=== PATIENT | female | born 1970 | race Caucasian/White ===

== ENCOUNTER 2016-06-06 07:43 | Emergency (ER) | payer OTHER ==
--- NOTE | ~2016-06-06 | EKG ---
PATIENT: FELIX GUPTA UNIT #: [id number] Ventricular Rate: 80 BPM Atrial Rate: 80 BPM P-R Interval: 134 ms QRS Duration: 74 ms Q-T Interval: 396 ms QTC Calculation(Bezet): 456 ms P [place]: 17 degrees Calculated R [place]: 25 degrees Calculated T [place]: 19 degrees Diagnosis Line: Normal sinus rhythm Diagnosis Line: T wave abnormality, consider anterior ischemia Diagnosis Line: Abnormal ECG Diagnosis Line: When compared with ECG of 25-MAY-2015 17:16, Diagnosis Line: Inverted T waves have replaced nonspecific T wave Diagnosis Line: abnormality in Anterior leads Diagnosis Line: Confirmed by ALVA BARAKAT MD ([id number]) on 06/10/2016 Diagnosis Line: 9:39:11 AM INTERPRETING MD: YUVAL BLANCO
--- NOTE | ~2016-06-06 | EKG ---
PATIENT: FELIX GUPTA UNIT #: [id number] Ventricular Rate: 71 BPM Atrial Rate: 71 BPM P-R Interval: 134 ms QRS Duration: 76 ms Q-T Interval: 434 ms QTC Calculation(Bezet): 471 ms P [place]: 11 degrees Calculated R [place]: 23 degrees Calculated T [place]: 18 degrees Diagnosis Line: Normal sinus rhythm Diagnosis Line: Nonspecific T wave abnormality Diagnosis Line: Prolonged QT Diagnosis Line: Abnormal ECG Diagnosis Line: When compared with ECG of 06-JUN-2016 07:04, Diagnosis Line: (unconfirmed) Diagnosis Line: No significant change was found Diagnosis Line: Confirmed by ALVA BARAKAT MD ([id number]) on 06/10/2016 Diagnosis Line: 9:39:30 AM INTERPRETING MD: YUVAL BLANCO
[2016-06-06 07:35] LABS: ACETAMINOPHEN 23 ug/mL; ALBUMIN SERUM 4.3 g/dL (3.5-5.0); ALKALINE PHOSPHATASE 64 U/L (32-92); ALT (SGPT) 27 U/L (10-40); AST (SGOT) 26 U/L (10-42); BILIRUBIN,TOTAL 0.6 mg/dL (0.2-2.0); BLOOD UREA NITROGEN 13 mg/dL (9-23); BUN/CREATININE RATIO 16.25; CALCIUM SERUM 9.2 mg/dL (8.4-10.2); CARBON DIOXIDE 23 mmol/L (22-31); CHLORIDE 102 mmol/L (100-111); CREATININE SERUM 0.8 mg/dL (0.6-1.4); GLOM FILT RATE Estimated ABOVE60 mL/min (>60); GLUCOSE FASTING 98 mg/dL (70-110); POTASSIUM 3.6 mmol/L (3.5-5.1); PROTEIN TOTAL SERUM 8.2 g/dL (6.0-8.3); SALICYLATE <4.0 mg/dL; SODIUM 136 mmol/L (135-145)
[2016-06-06 07:41] LABS: ALCOHOL BLOOD <5 mg/dL (0); BILIRUBIN, DIRECT <0.1 mg/dL (0.0-0.2); BILIRUBIN,INDIRECT 0.5 mg/dL (0.0-0.9)
[~2016-06-06 07:43] MED LIST: CLARITIN10 M2 PO; KDUR PO; PRILOSEC PO; PROZAC10 M1; PROZAC40 M1 PO; REQUIP0.25 MG PO; VOLTAREN PO; ZESTRIL10 M2
[2016-06-06 08:04] LABS: AMPHETAMINE NEG (NEG); BARBITURATES NEG (NEG); BENZODIAZEPINES NEG (NEG); COCAINE NEG (NEG); MARIJUANA NEG (NEG); OPIATES NEG (NEG); TRICYCLIC ANTIDEPRESSANTS NEG (NEG); U METHADONE NEG (NEG)
[2016-06-06 09:16] LABS: BASOPHIL% 0.3 % (0-2.5); EOSINOPHIL# 0.2 X10e3 (0-0.7); EOSINOPHIL% 2.2 % (0.0-7.0); HEMATOCRIT 41.4 % (35.0-45.0); HEMOGLOBIN 13.1 gm/dL (12.0-16.0); LYMPHOCYTE# 2.8 X10e3 (1.0-3.5); LYMPHOCYTE% 30.9 % (17.0-45.0); MEAN CELL VOLUME 78.6 FL (83-96); MEAN CORPUSCULAR HGB CONC 31.7 g/dL (30-36); MEAN PLATELET VOLUME 8.5 FL (6.5-11.5); MONOCYTE# 0.6 X10e3 (0-1.0); NEUTROPHIL# 5.5 X10e3 (1.5-7.1); NEUTROPHIL% 59.6 % (40-75); PLATELET COUNT 419 X10e3 (140-420); RED BLOOD COUNT 5.27 X10e (3.90-5.30); RED CELL DISTRIBUTION WIDTH 15.7 % (11.0-15.5); WHITE BLOOD COUNT 9.2 X10e3 (4.0-10.5)
[2016-06-06 09:19] LABS: DIFF IND NO
[2016-06-07 18:48] LABS: POC - CKMB <1.0 ng/mL (0.0-7.9); POC - MYOGLOBIN 36.9 ng/mL (0.0-169.0); POC - TROPONIN <0.05 ng/mL (<=0.05)
== END 2016-06-06 15:53 ==
LOC: SED 07:43
PROVIDERS: Emergency Medicine
DX: T46.4X2A Poisoning by angiotensin-converting-enzyme inhibitors, intentional self-harm, initial encounter (principal); T43.222A Poisoning by selective serotonin reuptake inhibitors, intentional self-harm, initial encounter; T39.1X2A Poisoning by 4-Aminophenol derivatives, intentional self-harm, initial encounter; F32.9 Major depressive disorder, single episode, unspecified; F17.200 Nicotine dependence, unspecified, uncomplicated
CPT/HCPCS: 36415; 80048; 80076; 80307; 82553; 83874; 84484; 85025; 93005; 96361; 96374; 99284; G0480; J2405

== ENCOUNTER 2016-06-06 17:58 | Inpatient (IN) | payer OTHER ==
--- NOTE | ~2016-06-06 | PA ---
Unit #: [id number] #: [id number] Patient: FELIX SHERIDAN [id number] [facility] [address] [place] [address] [id number] MR#: [id number] NAME: FELIX SHERIDAN ROOM: P259 Age: 46 Sex: F Admission Date: 06/06/2016 : 1970 Date of Assessment: 06/07/2016 Attending Physician: Jorge Rodriguez M.D. Admitting Physician: Jorge Rodriguez M.D. Primary Care Physician: Primary Care Physician No PSYCHIATRIC ASSESSMENT INFORMANTS The patient's reliability, fair; chart reliability, good. CHIEF COMPLAINT "I took pills, made a bad decision." HISTORY OF PRESENT ILLNESS Ms. Tanmay Sheridan is a 46-year-old white female, seen on [facility]. The patient was admitted after taking an overdose. The patient reported history of PTSD. The patient currently denied any suicidal or homicidal ideation, but reported history of depression and taking medication. The patient was pleasant and cooperative during interview. Able to answer questions appropriately. The patient has a history of previous inpatient treatment at [facility] outpatient services for depression. The patient lives at home with her , daughter 17, and son 25. The patient was transferred from [facility] on 72-hour hold following an overdose. The patient intentionally overdosed on her medication; lisinopril, Prozac, Requip, Tylenol. The patient was treated with charcoal in the ER. The patient reports financial stressors as a main trigger. The patient has a history of suicidal ideation and treatment at [facility], currently denied any suicidal ideation, but recent suicide attempt. Needing inpatient admission for psychiatric stabilization. PAST PSYCHIATRIC HISTORY Remarkable for history of previous treatment as mentioned above. FAMILY HISTORY AND SOCIAL HISTORY Family history is unremarkable for any history of any psychiatric illness. No known history of any abuse. MEDICAL HISTORY Remarkable for history of hypertension, GERD, restless legs syndrome, seasonal allergies. Musculoskeletal; muscle strength and tone, no atrophy or abnormal movement. Gait normal. MEDICATION HISTORY The patient was on lisinopril, Prozac, Requip, Claritin, Prilosec. ALLERGIES No known drug allergies. SUBSTANCE ABUSE HISTORY Unit #: [id number] #: [id number] Patient: FELIX SHERIDAN History of tobacco use, age of onset 12; alcohol use, age of onset 16; marijuana, age of onset 14. The patient denied any recent use of any drugs or alcohol. REVIEW OF SYSTEMS HEENT: Eyes, clear. Ears, nose, mouth, and throat; clear. CARDIOVASCULAR: Unremarkable. RESPIRATORY: Unremarkable. GI: Unremarkable. : Unremarkable. SKIN: Unremarkable. LYMPH NODE: Unremarkable. NEUROLOGIC: Unremarkable. ENDOCRINE: Unremarkable. HEMATOLOGIC: Unremarkable. ALLERGIC/IMMUNOLOGIC: Unremarkable. MUSCULOSKELETAL: Muscle strength and tone, no atrophy or abnormal movement. Gait normal. MENTAL STATUS EXAMINATION CONSTITUTIONAL: Measurement of vital signs; temperature 98.1, pulse 57, respirations 16, blood pressure 142/89. Height is 5 feet 3 inches, weight 158 pounds. GENERAL APPEARANCE: The patient dressed casually. The patient did not show any facial deformity. MUSCULOSKELETAL: Please see above. PSYCHIATRIC EXAMINATION Description of speech; regular rate, normal volume, normal articulation. Description of thought process, goal directed. Description of association, intact. Description of abnormal psychotic thinking; the patient denied any hallucination or delusions. Description of the patient's judgment; concerning everyday activity, poor. Social situation, poor. Concerning psychiatric condition, poor. Complete mental status examination; oriented in time, place, and person. Recent and remote memory, fair. Attention span and concentration, fair. Language, able to name object and repeat phrases. Fund of knowledge, aware of current event, passive vocabulary intact. Mood and affect, sad and dysphoric. Insight and judgment, fair to poor. ASSETS AND LIABILITIES Assets; the patient articulate, able to take care of her ADL. Liability; history of depression. ADMITTING DIAGNOSES Psychiatric: 1. Major depressive disorder, recurrent, F33.2. 2. Posttraumatic stress disorder, chronic, F43.12. Secondary diagnosis: Deferred. Medical diagnoses: History of hypertension, gastroesophageal reflux disease, restless legs syndrome. Stressors: Psychosocial stressors. PSYCHIATRIC PLAN AND TREATMENT GOAL 1. Advised to admit the patient on the inpatient unit. Provide safe, Unit #: [id number] #: [id number] Patient: FELIX SHERIDAN supportive, and structured environment. 2. Ordered labs; CBC, CMP, UA, UDS, and Tylenol level. 3. Precaution for self-harm. 4. The patient to attend all the programing on the inpatient unit. Advised to hold all medication. Group therapy, individual therapy, family session if possible. 5. Treatment goal to attain euthymic mood, gain insight into her problem, and learn coping skills. DISCHARGE PLAN Plan to stabilize the patient and consider followup in outpatient program. ESTIMATED LENGTH OF STAY 3 to 5 days. Dictated by... Mike Fish/toy TD: 06/08/2016 06:04 JOB #: [id number] PSYCHIATRIC ASSESSMENT Page 1 of 1 X Jorge Rodriguez MD X PSYCHIATRIC ASSESSMENT
--- NOTE | ~2016-06-06 | DS ---
Unit #: [id number] #: [id number] Patient: FELIX GUPTA [id number] [facility] [address] [place] [address] [id number] MR#: [id number] NAME: FELIX GUPTA ROOM: [facility] Age: 46 Sex: F Admission Date: 06/06/2016 : 1970 Discharge Date: 06/08/2016 Attending Physician: Jorge Rodriguez M.D. Primary Care Physician: Primary Care Physician No DISCHARGE SUMMARY REASON FOR ADMISSION Overdose, intentional. DIAGNOSTIC STUDIES LABORATORY RESULTS: Unremarkable except MCV 78.6. HOSPITAL COURSE The patient was admitted to inpatient unit on 06/06/2016 and discharged on 06/08/2016. The patient was treated on the inpatient unit with group therapy, individual therapy, psychotherapy, and structured milieu. The patient responded well with the above modalities of treatment. The patient was not started on any medication. The patient responded well. Subsequently, the patient was discharged with a plan to follow up in outpatient program. DISCHARGE DIAGNOSES Psychiatric: 1. Major depressive disorder, recurrent, severe. 2. Posttraumatic stress disorder, chronic. Secondary diagnosis: Deferred. Medical diagnoses: History of hypertension, gastroesophageal reflux disease, restless legs syndrome. Stressors: Psychosocial stressors. DISCHARGE INSTRUCTIONS The patient is to follow up in outpatient clinic as per public health social worker. CONDITION ON DISCHARGE The patient is pleasant and cooperative. Denied any psychotic symptom or any suicidal ideation. PROGNOSIS Guarded. DIET AND ACTIVITY As tolerated. Dictated by... Jorge Rodriguez M.D. Unit #: [id number] #: [id number] Patient: FELIX GUPTA SZC/modl TD: 06/08/2016 22:38 JOB #: [id number] DISCHARGE SUMMARY Page 1 of 1 X Jorge Rodriguez MD X DISCHARGE SUMMARY
--- NOTE | ~2016-06-06 | HP ---
Unit #: [id number] #: [id number] Patient: LYDIA GUPTA [id number] [place] [address] [id number] I MR#: [id number] NAME: LYDIA GUPTA ROOM: P259 Age: 46 Sex: F Admission Date: 06/06/2016 : 1970 Attending Physician: Jorge Rodriguez M.D. Admitting Physician: Jorge Rodriguez M.D. Primary Care Physician: Primary Care Physician No HISTORY AND PHYSICAL HISTORY OF PRESENT ILLNESS Lydia is a 46 year old admitted to [address] [place] [address] with depression after suicide attempt with an overdose of pills. She was charcoaled in local emergency room and then transferred to this facility for psychiatric care. She is on hold. PAST MEDICAL HISTORY Nothing significant. PAST SURGICAL HISTORY Nothing reported. ALLERGIES No known drug allergies. SOCIAL HISTORY Smokes 1 pack per day. Denies alcohol and illicit drug use. FAMILY HISTORY Medically noncontributory. REVIEW OF SYSTEMS CONSTITUTIONAL: No fever or chills. HEENT: Denies any sore throat, ear pain or runny nose. CARDIOVASCULAR: Denies chest pain, irregular heart rhythm or palpitations. CHEST: Denies shortness of breath or cough. No hemoptysis. GASTROINTESTINAL: Denies nausea, vomiting, diarrhea or chronic constipation. ENDOCRINE: Denies history of increased thirst or urination. No recent significant weight loss or gain. GENITOURINARY: Denies dysuria, frequency, or hematuria. SKIN: Denies any rashes. HEMATOLOGIC: Denies history of increased bleeding or bruising. MUSCULOSKELETAL: Denies any hot, swollen joints. No generalized muscle pain. NEUROLOGIC: Denies problems with vision or speech. No frequent, severe headaches. No numbness, tingling or weakness in any extremities. Denies loss of bladder or bowel control. CURRENT MEDICATIONS 1. Desyrel q.h.s. p.r.n. 2. Milk of Magnesia p.r.n. 3. Maalox p.r.n. Unit #: [id number] #: [id number] Patient: LYDIA GUPTA 4. Tylenol p.r.n. 5. Nicotine patch 14 mg daily. PHYSICAL EXAMINATION GENERAL: Alert, obese, no apparent distress. VITAL SIGNS: Blood pressure 146/62, heart rate 78, respirations 16, temperature 98.6. WEIGHT: 158. HEIGHT: 5 feet 3 inches. SKIN: Warm and dry without rash or lesion. HEENT: Normocephalic. TMs not viewed. Oral and nasal passages clear. Conjunctivae clear. PERRLA. EOMs intact. NECK: Supple without lymphadenopathy or thyromegaly. HEART: Regular rate and rhythm without murmur. LUNGS: Clear. ABDOMEN: Soft, nontender. : Not done. EXTREMITIES: No evidence of cyanosis, clubbing or edema. Moves all without focal deficit. NEUROLOGICAL: Grossly within normal limits. Cranial Nerves: II: Visual claros are intact. III, IV AND : Extraocular movements are intact. Pupils are equal, round and reactive to light. V: Facial sensation is grossly normal. VII: Facial movements and expression are normal. VIII: Auditory acuity grossly intact. IX, X: Uvula is midline. Phonation is normal. XI: Patient shrugs shoulders and turns head normally. XII: Tongue protrudes in the midline. Sensory and Motor Function: Sensory and motor sensation is grossly normal. Motor: moves all extremities well. Coordination: Gait is normal. Deep Tendon Reflexes: Intact. IMPRESSION Psychiatric admission. RECOMMENDATIONS PSYCHIATRIC: Per psychiatrist. MEDICAL: See no contraindications to participate in facility's activities. MEDICAL PROGNOSIS Good. MEDICAL CONDITION Stable. Dictated by... Ara Swift P.A.-C. for Mike Montanez/aneesh TD: 06/07/2016 18:26 JOB #: [id number] Unit #: [id number] #: [id number] Patient: LYDIA GUPTA HISTORY AND PHYSICAL Page 1 of 1 X Ara Swift HISTORY AND PHYSICAL
== END 2016-06-08 14:20 | disposition home or self-care (01) | DRG 885 ==
LOC: P2L 17:58
DX: F33.2 Major depressive disorder, recurrent severe without psychotic features (principal); R45.851 Suicidal ideations; I10 Essential (primary) hypertension; F43.12 Post-traumatic stress disorder, chronic; K21.9 Gastro-esophageal reflux disease without esophagitis; G25.81 Restless legs syndrome; F17.200 Nicotine dependence, unspecified, uncomplicated
CPT/HCPCS: G0480